=== PATIENT | male | born 1975 | race American Indian/Alaskan Native ===

== ENCOUNTER 2017-10-02 14:02 | Inpatient (IN) | payer MEDICARE, MEDICAID ==
[~2017-10-02] VITALS: Ht 188 cm; Wt 92.4 kg
[2017-10-02 14:35] LABS: BASOPHILS % (AUTO) 0.4 % (0-1); EOSINOPHILS # (AUTO) 0.2 X10'3 (0-0.9); EOSINOPHILS % (AUTO) 1.8 % (0-6); HEMATOCRIT 43.3 % (42.0-52.0); HEMOGLOBIN 14.8 g/dl (14.0-17.9); LYMPHOCYTES # (AUTO) 1.4 X10'3 (1.1-4.8); LYMPHOCYTES % (AUTO) 16.6 % (21-51); MEAN CORPUSCULAR HGB CONC 34.2 % (33.0-36.5); MEAN CORPUSCULAR VOLUME 84.8 FL (78-98); MEAN PLATELET VOLUME 8.6 FL (7.4-10.4); MONOCYTES # (AUTO) 0.6 X10'3 (0-0.9); MONOCYTES % (AUTO) 6.5 % (2-12); NEUTROPHILS # (AUTO) 6.5 X10'3 (1.8-7.7); NEUTROPHILS % (AUTO) 74.7 % (42-75); PLATELET COUNT 215 X10'3 (140-440); RED BLOOD COUNT 5.11 X10'6 (4.70-6.10); WHITE BLOOD COUNT 8.7 X10'3 (4.5-11.0)
[2017-10-02 14:43] LABS: CLARITY,URINE CLEAR (Clear); COLOR,URINE YELLOW (Yellow); GLUCOSE, URINE NEGATIVE (Neg); KETONES,URINE NEGATIVE (Neg); LEUKOCYTE ESTERASE ,URINE NEGATIVE (Neg); NITRITES, URINE NEGATIVE (Neg); OCCULT BLOOD,URINE MODERATE (Neg); PH,URINE 6.5 (4.8-8.0); PROTEIN,URINE NEGATIVE (Neg); UA COLLECTION TYPE CLN CATCH MIDSTREAM; UROBILINOGEN,URINE 0.2 E.U/dL (0.2-1.0)
[2017-10-02 14:44] LABS: PROTHROMBIN TIME 10.5 SECONDS (9.0-12.0)
[2017-10-02] MEDS ORDERED: ketorolac trometh. 30mg/ml inj. IV ONE (14:45)
[2017-10-02] MEDS ORDERED: normal saline 1000ML IV soln IVB ONE (14:45)
[2017-10-02 14:50] LABS: ALANINE AMINOTRANSFERASE 39 U/L (12-78); ALBUMIN 3.6 G/DL (3.4-5.0); ALBUMIN/GLOBULIN RATIO 0.9 (1.1-1.5); ALKALINE PHOSPHATASE 70 IU/L (46-116); ANION GAP 12 (8-16); ASPARTATE AMINO TRANSFERASE 15 U/L (10-37); BILIRUBIN,TOTAL 1.1 MG/DL (0.1-1.0); BLOOD UREA NITROGEN 12 MG/DL (7-18); BUN/CREATININE RATIO 5.9 (5.4-32.0); CHLORIDE 101 MMOL/L (99-107); CREATININE 2.02 MG/DL (0.60-1.10); GLUCOSE 134 MG/DL (70-104); POTASSIUM 3.7 MMOL/L (3.5-5.1); SODIUM 137 MMOL/L (135-145); TOTAL CARBON DIOXIDE 24.1 MMOL/L (24-32); TOTAL PROTEIN 7.4 G/DL (6.4-8.2); eGFR 36 ML/MIN
[2017-10-02 14:58] LABS: BACTERIA,URINE NONE SEEN /HPF (Neg); SQUAMOUS EPITHELIAL CELL,UR FEW /LPF (FEW); WBC,URINE 0-4 /HPF (0-4)
[2017-10-02] MEDS ORDERED: HYDR-3965 PO (15:57)
[2017-10-02] MEDS ORDERED: ONDA4TAB12 PO (15:57)
[2017-10-02] MEDS ORDERED: FLO0.4C PO (15:57)
[2017-10-02] MEDS ORDERED: morphine 4 MG/ML inj SYRINge IV PRN ×4 (17:45→21:55)
[2017-10-02] MEDS ORDERED: mag hydrox/Alum hydrox/simeth 30ml oral suspension PO PRN (17:45)
[2017-10-02] MEDS ORDERED: magnesium hydroxide 30ml (MOM) UD suspension PO PRN (17:45)
[2017-10-02] MEDS ORDERED: HYDROmorphone inj. 0.5 MG/0.5 ML DISP.SYRIN IV PRN ×2 (17:45)
[2017-10-02] MEDS ORDERED: acetaminophen 325mg tablet PO PRN (17:45)
[2017-10-02] MEDS ORDERED: bisacodyl 10mg suppository rectal RC PRN (17:45)
[2017-10-02] MEDS ORDERED: HYDROcodone/acetaminophen 5mg/325mg tablet PO PRN (17:45)
[2017-10-02] MEDS ORDERED: metoclopramide 5 mg/ml inj IV PRN (17:45)
[2017-10-02] MEDS ORDERED: levoFLOXACIN-Levaquin 500mg/D5 100 ML IV SCH (17:45)
[2017-10-02] MEDS ORDERED: acetaminophen 650mg rectal suppository RC PRN (17:45)
[2017-10-02] MEDS ORDERED: diphenhydrAMINE 25mg capsule PO PRN (17:45)
[2017-10-02] MEDS ORDERED: diphenhydrAMINE 50 mg/ml inj IV PRN (17:45)
[2017-10-02] MEDS ORDERED: ondansetron/PF 4mg/2ml inj IV PRN (17:45)
[2017-10-02 18:12] LABS: LIPASE 115 U/L (73-393); PHOSPHORUS 2.8 MG/DL (2.3-4.5)
[2017-10-02] MEDS: normal saline 1000ml 1,000 ML IV SCH (18:25)
[2017-10-02] MEDS: docusate sod 100mg capsule PO SCH (19:56)
[2017-10-02 21:00] VITALS: BP 115/69
[2017-10-02] MEDS ORDERED: temazepam 15mg capsule PO PRN (21:00)
[2017-10-02] MEDS: HYDROcodone/acetaminophen 10/325mg tab PO PRN (22:02)
[2017-10-02] MEDS ORDERED: morphine 2 MG/ML inj. syringe IV PRN ×2 (23:10)
[2017-10-03] VITALS (13 sets, daily range): BP systolic 106–134; BP diastolic 66–89
[2017-10-03] MEDS ORDERED: morphine 2 MG/ML inj. syringe IV PRN (01:30)
[2017-10-03] MEDS: morphine 2 MG/ML inj. syringe IV PRN ×3 (01:47→14:56)
[2017-10-03] MEDS: normal saline 1000ml 1,000 ML IV SCH ×2 (04:40→13:41)
[2017-10-03] MEDS: docusate sod 100mg capsule PO SCH (07:58)
[2017-10-03] MEDS ORDERED: levoFLOXACIN-Levaquin 250mg/D5 50 ML IV SCH (08:00)
[2017-10-03] MEDS ORDERED: sevoflurane 250ml liquid IH ONE (12:30)
[2017-10-03] MEDS ORDERED: ringers solution, lacted 1,000 ML IV SCH (12:54)
[2017-10-03] MEDS ORDERED: proCHLORperazine 10 MG/2 ml inj IV PRN (12:55)
[2017-10-03] MEDS ORDERED: ondansetron/PF 4mg/2ml inj IV PRN (12:55)
[2017-10-03] MEDS ORDERED: morphine 4 MG/ML inj SYRINge IV PRN ×2 (12:55)
[2017-10-03] MEDS ORDERED: meperidine/PF 25mg/ml syringe IV PRN ×3 (12:55)
[2017-10-03] MEDS ORDERED: fentaNYL/PF 50MCG/1 ML 2ML syringe ONE (12:58)
[2017-10-03] MEDS ORDERED: midazolam 2 mg/2 ml injection ONE (13:00)
[2017-10-03] MEDS ORDERED: LIDOcaine 2% (20mg/ml) 5ml vial ONE (13:22)
[2017-10-03] MEDS ORDERED: dexamethasone sod phosphate 4mg/ml inj. ONE (13:22)
[2017-10-03] MEDS ORDERED: propofol inj 20 ML IV ONE (13:22)
[2017-10-03] MEDS ORDERED: HYDR-3965 PO (18:10)
[2017-10-03] MEDS: HYDROcodone/acetaminophen 10/325mg tab PO PRN (19:32)
== END 2017-10-03 20:19 | disposition home or self-care (01) | DRG 683 ==
LOC: ER 14:02 → ED HOLD 17:41 → SUR 3N 21:00 → PACU 10-03 12:05 → SUR 3N 10-03 14:16
PROVIDERS: ADMIT Family Medicine; ATTEND Family Medicine
PROC: BT171ZZ Fluoroscopy of Left Ureter using Low Osmolar Contrast (ICD-10-PCS; 2017-10-03)
PROC: 0T778DZ Dilation of Left Ureter with Intraluminal Device, Via Natural or Artificial Opening Endoscopic (ICD-10-PCS; principal; 2017-10-03 12:37)
DX: N17.9 Acute kidney failure, unspecified (principal); N20.2 Calculus of kidney with calculus of ureter; E86.0 Dehydration; N12 Tubulo-interstitial nephritis, not specified as acute or chronic; F32.9 Major depressive disorder, single episode, unspecified; F41.9 Anxiety disorder, unspecified; Z91.041 Radiographic dye allergy status; Z79.899 Other long term (current) drug therapy
CPT/HCPCS: 36415; 74176; 80053; 81001; 83690; 83735; 83880; 84100; 85025; 85610; 87070; 96361; 96374; 99285; A4402; C1769; C2625; J1100; J1885; J1956; J2001; J2250; J2270; J2704; J3010; J7030; J7120

== ENCOUNTER 2017-10-29 21:07 | Emergency (ER) | payer MEDICARE, MEDICAID ==
[~2017-10-29] VITALS: Ht 188 cm; Wt 60.1 kg
[~2017-10-29 21:07] MED LIST: FLO0.4C PO; HYDR-3965 PO; ONDA4TAB12 PO
[2017-10-29] MEDS ORDERED: normal saline 1000ML IV soln IVB ONE (22:30)
[2017-10-29] MEDS ORDERED: ketorolac trometh. 30mg/ml inj. IV ONE (22:30)
[2017-10-29 22:51] LABS: BASOPHILS % (AUTO) 0.3 % (0-1); EOSINOPHILS # (AUTO) 0.4 X10'3 (0-0.9); EOSINOPHILS % (AUTO) 5.5 % (0-6); HEMATOCRIT 39.9 % (42.0-52.0); HEMOGLOBIN 13.5 g/dl (14.0-17.9); LYMPHOCYTES # (AUTO) 1.7 X10'3 (1.1-4.8); LYMPHOCYTES % (AUTO) 26.8 % (21-51); MEAN CORPUSCULAR HEMOGLOBIN 28.6 PG (27.0-31.0); MEAN CORPUSCULAR HGB CONC 33.9 % (33.0-36.5); MEAN CORPUSCULAR VOLUME 84.4 FL (78-98); MEAN PLATELET VOLUME 8.1 FL (7.4-10.4); MONOCYTES # (AUTO) 0.3 X10'3 (0-0.9); MONOCYTES % (AUTO) 4.7 % (2-12); NEUTROPHILS % (AUTO) 62.7 % (42-75); PLATELET COUNT 275 X10'3 (140-440); RED BLOOD COUNT 4.73 X10'6 (4.70-6.10); WHITE BLOOD COUNT 6.4 X10'3 (4.5-11.0)
[2017-10-29 22:59] LABS: GLUCOSE, URINE NEGATIVE (Neg); KETONES,URINE NEGATIVE (Neg); OCCULT BLOOD,URINE LARGE (Neg); PROTEIN,URINE >=300 mg/dl (Neg)
[2017-10-29 23:06] LABS: ALANINE AMINOTRANSFERASE 35 U/L (12-78); ALBUMIN 3.2 G/DL (3.4-5.0); ALBUMIN/GLOBULIN RATIO 0.9 (1.1-1.5); ALKALINE PHOSPHATASE 71 IU/L (46-116); ANION GAP 4 (8-16); ASPARTATE AMINO TRANSFERASE 10 U/L (10-37); BILIRUBIN,TOTAL 0.5 MG/DL (0.1-1.0); BLOOD UREA NITROGEN 6 MG/DL (7-18); BUN/CREATININE RATIO 5.2 (5.4-32.0); CALCIUM 8.9 MG/DL (8.5-10.1); CHLORIDE 104 MMOL/L (99-107); CREATININE 1.16 MG/DL (0.60-1.10); GLUCOSE 156 MG/DL (70-104); POTASSIUM 3.2 MMOL/L (3.5-5.1); SODIUM 139 MMOL/L (135-145); TOTAL CARBON DIOXIDE 30.6 MMOL/L (24-32); TOTAL PROTEIN 6.8 G/DL (6.4-8.2); eGFR 69 ML/MIN
[2017-10-29 23:15] LABS: LEUKOCYTE ESTERASE ,URINE SMALL (Neg); NITRITES, URINE NEGATIVE (Neg); UROBILINOGEN,URINE 0.2 E.U/dL (0.2-1.0)
[2017-10-29 23:21] LABS: CLARITY,URINE BLOODY (Clear); COLOR,URINE DARK YELLOW (Yellow); UA COLLECTION TYPE CLN CATCH MIDSTREAM
[2017-10-29 23:23] LABS: BACTERIA,URINE 1+ /HPF (Neg); RBC,URINE TNTC /HPF (0-2); SQUAMOUS EPITHELIAL CELL,UR NONE SEEN /LPF (FEW); WBC,URINE TNTC /HPF (0-4)
[2017-10-29] MEDS ORDERED: HYDROcodone/acetaminophen 10/325mg tab PO ONE (23:30)
[2017-10-29] MEDS ORDERED: cephalexin 250mg capsule PO ONE (23:30)
[2017-10-29] MEDS ORDERED: FLO0.4C PO (23:32)
[2017-10-29] MEDS ORDERED: CEPH-572 PO (23:32)
[2017-10-29] MEDS ORDERED: IBUP-1985 PO (23:32)
[2017-10-29] MEDS ORDERED: HYDR-565 PO (23:32)
[2017-10-29] MEDS ORDERED: CefTRIAXone/D5W-Rocephin 1gm 50 ML IV ONE (23:50)
[2017-10-29 23:57] VITALS: BP 100/52
== END 2017-10-30 00:50 | disposition home or self-care (01) ==
LOC: ER 21:07
DX: N39.0 Urinary tract infection, site not specified (principal); N20.0 Calculus of kidney; R31.9 Hematuria, unspecified; F41.9 Anxiety disorder, unspecified; F32.9 Major depressive disorder, single episode, unspecified; Z88.8 Allergy status to other drugs, medicaments and biological substances
CPT/HCPCS: 36415; 80053; 81001; 85025; 87088; 96365; 96375; 99284; J0696; J1885; J7030

== ENCOUNTER 2020-10-19 17:35 | Emergency (ER) | payer MEDICARE, MEDICAID ==
[~2020-10-19] VITALS: Ht 182.9 cm; Wt 180.0 kg
[~2020-10-19 17:35] MED LIST changes: -FLO0.4C PO; -HYDR-3965 PO; +IBUP-1985 PO; -ONDA4TAB12 PO
[2020-10-19 17:48] VITALS: BP 118/74
[2020-10-19] MEDS ORDERED: acetaminophen 325mg tablet PO ONE ×2 (17:55→18:35)
[2020-10-19 19:20] LABS: BASOPHILS % (AUTO) 0.2 % (0-1); EOSINOPHILS % (AUTO) 0.1 % (0-6); HEMATOCRIT 42.3 % (42.0-52.0); HEMOGLOBIN 13.9 g/dl (14.0-17.9); LYMPHOCYTES % (AUTO) 11.6 % (21-51); MEAN CORPUSCULAR HEMOGLOBIN 27.2 PG (27.0-31.0); MEAN CORPUSCULAR HGB CONC 32.9 g/dL (33.0-36.5); MEAN CORPUSCULAR VOLUME 82.6 FL (78-98); MEAN PLATELET VOLUME 8.3 FL (7.4-10.4); MONOCYTES # (AUTO) 0.5 X10'3 (0-0.9); NEUTROPHILS # (AUTO) 7.4 X10'3 (1.8-7.7); NEUTROPHILS % (AUTO) 82.1 % (42-75); PLATELET COUNT 182 X10'3 (140-440); RED BLOOD COUNT 5.13 X10'6 (4.70-6.10); RED CELL DISTRIBUTION WIDTH 16.5 % (11.5-14.5); WHITE BLOOD COUNT 9.1 X10'3 (4.5-11.0)
[2020-10-19 19:41] LABS: ALANINE AMINOTRANSFERASE 34 U/L (12-78); ALBUMIN 3.3 G/DL (3.4-5.0); ALBUMIN/GLOBULIN RATIO 0.8 (1.1-1.5); ALKALINE PHOSPHATASE 75 IU/L (46-116); ANION GAP 10 (8-16); ASPARTATE AMINO TRANSFERASE 22 U/L (10-37); BILIRUBIN,TOTAL 0.9 MG/DL (0.1-1.0); BLOOD UREA NITROGEN 8 MG/DL (7-18); BUN/CREATININE RATIO 4.9 (5.4-32.0); CALCIUM 8.1 MG/DL (8.5-10.1); CHLORIDE 100 MMOL/L (99-107); CREATININE 1.64 MG/DL (0.60-1.10); GLUCOSE 130 MG/DL (70-104); POTASSIUM 3.3 MMOL/L (3.5-5.1); SODIUM 135 MMOL/L (135-145); TOTAL CARBON DIOXIDE 25.1 MMOL/L (24-32); TOTAL PROTEIN 7.5 G/DL (6.4-8.2); eGFR 46 ML/MIN
== END 2020-10-19 19:57 | disposition home or self-care (01) ==
LOC: ER 17:35
DX: U07.1 COVID-19 (principal); R19.7 Diarrhea, unspecified; R51.9 Headache, unspecified; R05 Cough; R11.0 Nausea; F41.9 Anxiety disorder, unspecified; F32.9 Major depressive disorder, single episode, unspecified; F17.200 Nicotine dependence, unspecified, uncomplicated; Z87.442 Personal history of urinary calculi; Z79.899 Other long term (current) drug therapy
CPT/HCPCS: 36415; 71045; 80053; 85025; 87635; 99284; C9803

== ENCOUNTER 2022-02-27 05:17 | Emergency (ER) | payer MEDICARE, MEDICAID ==
[~2022-02-27] VITALS: Ht 188 cm; Wt 100.0 kg
[2022-02-27 05:20] VITALS: BP 144/93
== END 2022-02-27 13:04 | disposition left against medical advice (07) ==
LOC: ER 05:18
DX: M54.9 Dorsalgia, unspecified (principal); Z53.21 Procedure and treatment not carried out due to patient leaving prior to being seen by health care provider

== ENCOUNTER 2024-10-11 17:17 | Emergency (ER) | payer MEDICAID, MEDICARE ==
[~2024-10-11] VITALS: Ht 185.4 cm; Wt 105.0 kg
[2024-10-11 17:21] VITALS: TEMP 98.3
[2024-10-11 18:01] LABS: MEAN PLATELET VOLUME 10.3 FL (7.4-10.4); RED CELL DISTRIBUTION WIDTH 15.9 % (11.5-14.5)
--- NOTE | 2024-10-11 18:03 | RADIOLOGY REPORT ---
CHEST RADIOGRAPH Indication: SEPSIS Technique: Single frontal view of the chest was obtained Comparison: CHEST,SINGLE VIEW on DOS: 10/19/20 FINDINGS: Lines and Tubes: None Lungs: No focal consolidation. Right lower lung zone Linear densities. Pleura: No effusion. No pneumothorax. Cardiomediastinal contours: Unremarkable Bones: No acute osseous abnormality. IMPRESSION: Right lower lung zone linear atelectasis. Otherwise, no evidence for acute cardiopulmonary disease.
[2024-10-11] MEDS: morphine 4 MG/ML inj SYRINge IV ONE (18:11)
[2024-10-11] MEDS: ondansetron/PF 4mg/2ml inj IV ONE (18:11)
--- NOTE | 2024-10-11 18:17 | Physician Documentation ---
History of Present Illness Chief Complaint: Abdominal Pain w/vomiting Stated Complaint: PAIN Time Seen by MD: 18:09 OK to notify your PCP?: Yes Primary Medical Doctor: [facility] Source: patient Mode of Arrival: Ambulatory HPI This 49-year-old male presents to the ED with a complaint of sharp 10/10 pain the last 4-5 days. THe last three days, he has been vomiting . denies no fever or chills. Patient does report a difficulty defecating and a recent methamphetamine use. Patient also reports a history of kidney problems Day of Onset: Oct 11, 2024 Medication Reconciliation Allergies: Coded Allergies: No Known Allergies (Unverified , 10/11/24) Scheduled Ibuprofen (Ibuprofen), 1 TAB PO Q8H Past Medical History Past Medical History: Kidney Stones, Anxiety, Depression Past Surgical History: noncontributory Alcohol Use: None Drug Use: none Lives with: Spouse Lives In: Home Occupation: employed Review of Systems All Other Systems at this time: Reviewed and Negative ROS As stated above in the HPI, otherwise all systems are reviewed and negative. Physical Exam Vital Signs: RN Vital Signs have been reviewed: Yes, Temperature: 98.3, Source: Oral, Heart Rate: 119, Respiratory Rate: 28, BP: 90/38, Pulse Oximetry: 96, Weight: 105.000 Oxygen Flow Rate: 0 Progress Progress Note 1908: The case was discussed with the hardware assembler Dr. henriquez who was informed about the patients case and kindly agreed to see the patient. 1918: The patient walked out refusing any additional care, not even removing the IV from his arm or putting his shirt back on. The patient was asked by the provider to stay to be treated and informed that if he leaves he has a great chance of dying but he left regardless. Results/Orders Reviewed/noted all lab results: Yes Results/Orders Medications Received in ER Medications (Trade) Dose Ordered Sig/Sherwin Route PRN Reason Start Time Stop Time Status Last Admin Dose Admin (Zofran 4mg/2ml vial) 4 mg ONCE ONCE IV 10/11/24 18:05 10/11/24 18:07 DC 10/11/24 18:11 4 MG (morphine inj.) 4 mg ONCE ONCE IV 10/11/24 18:05 10/11/24 18:07 DC 10/11/24 18:11 4 MG Vital Signs 10/11/24 10/11/24 10/11/24 17:21 17:49 18:11 Temp 98.3 Pulse 119 Resp 18 28 B/P (MAP) 90/38 Pulse Ox 96 O2 Flow Rate 0 Laboratory Tests Test 10/11/24 17:40 White Blood Count 14.4 H Red Blood Count 5.29 Hemoglobin 14.6 Hematocrit 43.1 Mean Corpuscular Volume 81.4 Mean Corpuscular Hemoglobin 27.5 Mean Corpuscular Hemoglobin Concent 33.8 Red Cell Distribution Width 15.9 H Platelet Count Mean Platelet Volume 10.3 Neutrophils (%) (Auto) 91.2 H Lymphocytes (%) (Auto) 1.6 L Monocytes (%) (Auto) 1.4 L Eosinophils (%) (Auto) 5.7 Basophils (%) (Auto) 0.1 Neutrophils # (Auto) 13.1 H Lymphocytes # (Auto) 0.2 L Monocytes # (Auto) 0.2 Eosinophils # (Auto) 0.8 Basophils # (Auto) 0.0 CBC Comment Basophilic Stippling Chemistry Comments Re-Evaluation Re-Evaluation : Re-Evaluation: Improved Progress This patient is critically ill. He was signed out to me for admission. However during the workup the patient decided to go AMA in the middle of aggressive resuscitation. Patient was tachycardic hypotensive and his cat scan revealed obstructive uropathy with UTI and sepsis. Patient has a history of drug use. Patient's heart rate improved from 140s to the 100s. I made arrangements with Nephrology Dr. Henriquez [facility] to evaluate the patient for possible hemodialysis and kidney failure. Patient's laboratory work showed a lactic acid of 6.7. Troponin was elevated at 1620 consistent with a non ST-elevation RI. patient had significant infection with procalcitonin of 150 [place]. [place] [address] [place] CO2 of 18 with hyponatremia sodium of 128. Patient's D-dimer elev ated at greater than 35. Patient's CBC showed platelets of 17. Patient had a white count of 14.4 with a left shift of 91.2 neutrophils. Patient's heart rate was in the 170s he was hypotensive with blood pressure 78/56. Patient decided to go AMA. Patient was told that he will . He was told to go to another hospital if not return here. I did not have a chance to give the patient is antibiotics. Also considered cardioverting the patient however this appeared to be SVT rather than AFib. Patient was alert oriented perfusing enough blood to the brain to know the date who the president was. Patient refused to sign the AMA form. Patient looked much better than his initial presentation however he still looks quite ill when he left AMA. He was able to ambulate on his own accord. Cardiac continuous monitor showed SVT heart rate 170s, abnormal, my interpretation. Pulse oximetry monitor interpretation is low at 93% room air, abnormal, my interpretation. 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 Florentin Ramsey Measurements Intervals [place] Rate: 146 P: 0 WI: 0 QRS: 52 QRSD: 104 T: 52 QT: 308 QTc: 480 Interpretive Statements Atrial fibrillation Electronically Signed On 10-11-2024 20:05:[address] Florentin Ramsey Please click the below link to view image of tracing. EKG Date and Time:10/11/241843 Electronically Signed by: FLORENTIN RAMSEY MD Date and Time: 10/11/242004 Chest X-Ray : Additional Comments CHEST RADIOGRAPH Indication: SEPSIS Technique: Single frontal view of the chest was obtained Comparison: CHEST,SINGLE VIEW on DOS: 10/19/20 FINDINGS: Lines and Tubes: None Lungs: No focal consolidation. Right lower lung zone Linear densities. Pleura: No effusion. No pneumothorax. Cardiomediastinal contours: Unremarkable Bones: No acute osseous abnormality. IMPRESSION: Right lower lung zone linear atelectasis. Otherwise, no evidence for acute cardiopulmonary disease. Electronically Signed by:MARIANNE GUZMAN DO Date & Time: 10/11/[address] : Impression Exam: CT CT ABDOMEN PELVIS History: severe abdominal pain Comparison Study: None TECHNIQUE: Multidetector CT of the abdomen pelvis without IV contrast. Axial, coronal and sagittal multiplanar reformats were obtained from the axial data set by the technologist. Radiation Dose Information: CT Dose: CTDI volume is 31.31 mGy. Dose-length product is 1793.09 mGy*cm FINDINGS: Bibasilar atelectasis. Partially visualized heart is unremarkable. Mild hepatomegaly with hepatic steatosis., liver, spleen, gallbladder, pancreas unremarkable. Mild gaseous and adrenal adjacent to the bilateral adrenal glands which is most likely from the perinephric fat stranding. Otherwise, the adrenal glands unremarkable. Mild left with jdks-es-cmybrdii right-sided perinephric fat stranding. M hmo-hj-eqatlgjm right-sided Seibert nephrosis with a 0.9 x 0.7 cm obstructing calculus of the right ureteropelvic junction/ proximal ureter. Additional punctate nonobstructing right renal calculi are noted. Punctate nonobstructing left renal calculus is noted. Limited evaluation of the urinary bladder due to decompressed state. Prostate is unremarkable. 6 mm hyperdensity layering within the gastric fundus with associated Minimal Streak artifact. Otherwise, the stomach is unremarkable Small bowel loops mid jejunum is fluid-filled and borderline distended up to 3 cm. The remainder of the small bowel loops unremarkable. Appendix is unremarkable. Fat stranding adjacent to the ascending colon which is most likely from the perirenal fat stranding. The large bowel is otherwise unremarkable. No evidence of intraperitoneal free air or free fluid. No evidence of aortic aneurysm. Mild atherosclerotic calcification of the aorta. Small fat containing umbilical hernia. Small fat containing bilateral inguinal hernias. Posterior spinal fusion with post laminectomy changes L3 to S1. IMPRESSION: Opxo-eg-xcpjhnkh right hydro nephrosis with a obstructing 0.9 x 0.7 cm calculus of the right ureteral pelvic junction/ right proximal ureter. Calf equd-fh-xvxvaoej right-sided perinephric fat stranding which is most likely from the obstructing Seibert nephrosis. Additional punctate bilateral renal calculi are noted. The mid jejunum is fluid-filled and borderline distended up to 3 cm which may be due to ileus with early bowel obstruction not excluded. 6 mm hyperdensity with streak artifact within the stomach. Correlate for possible foreign body. Additional findings as above. Electronically Signed by:MARIANNE GUZMAN DO Date & Time: 10/11/24 1851 Medical Decision Making Additional info obtained from: old records Findings Dr. Ramsey [facility] at 1900. Differential Dx:Considerations: Include: AAA, Angina/RI, Aortic dissection, Appendicitis, Bowel obstruction, Cholangitis, Cholelithasis, Constipation, Dive rticular disease, Esophageal rupture, Esophagitis, Gastritis/PUD, Gastroenteritis, GI hemorrhage, Hernia, Hepatitis, Inflammatory BD, Ischemic bowel, Pancreatitis, Porphyria, Testicular torsion, Trauma, intraabdominal, Urinary obstruction, Urinary tract infection, Urolithiasis, Other Heart Score: Heart Score Response (Comments) Value History Moderate Suspicious 1 EKG Repolarization Disturb 1 Age 45-64 1 Risk Factors 1 or 2 risk factors 1 Troponin >3 x's Normal limit 2 Total 6 Departure Time of Disposition: 19:27 Disposition: 07 LEFT AGAINST MEDICAL ADVICE Impression: Primary Impression: Small bowel obstruction Additional Impressions: Dehydration Renal failure Qualified Codes: N17.9 - Acute kidney failure, unspecified NSTEMI (non-ST elevated myocardial infarction) Cardiogenic shock Atrial fibrillation with RVR Thrombocytopenia Chronic pain Methamphetamine abuse Condition: Fair Referrals: NO PRIMARY CARE PROVIDER (PCP) Education Educated: Patient Educated regarding: diagnosis, treatment, prognosis, need for follow up Critical Care Note Total Time (mins): 95 Critical Care Note The very real possibility of a deterioration of this patient's condition required the highest level of my preparedness for sudden, emergent intervention. I provided critical care services, which included medication orders, frequent reevaluations of the patient's condition and response to treatment, ordering and reviewing test results, and discussing the case with various consultants. Excludes time spent performing separately billable procedures. The critical care time associated with the care of the patient was. 95 minutes Signature Scribe Signature: y Scribed for Florentin Ramsey MD by Raquel Dunlap . 10/11/24 19:10 (Progress only) Attestation: Scribed for Florentin Ramsey MD by Liza Llanes NP . 10/11/24 19:02 LIZA SOLIZ NP Oct 11, 2024 18:17 RAQUEL WHITLEY Oct 11, 2024 19:11 FLORENTIN RAMSEY MD Oct 13, 2024 23:42
[2024-10-11 18:22] LABS: LYMPHOCYTES % (MANUAL) 3.0 % (21-51); METAMYLEOCYTES% (MANUAL) 1.0 % (0-0); MONOCYTES % (MANUAL) 5.0 % (2-12); NEUTROPHILS % (MANUAL) 91.0 % (42-75)
[2024-10-11 18:23] LABS: PLATELET ESTIMATE DECREASED
[2024-10-11 18:30] VITALS: O2SAT 93
[2024-10-11 18:34] LABS: CREATININE 8.99 MG/DL (0.60-1.10); TOTAL CARBON DIOXIDE 18.8 MMOL/L (24-32); eCRCL 11 ML/MIN; eGFR 6 ML/MIN
[2024-10-11 18:38] VITALS: RESP 20
[2024-10-11] MEDS: normal saline 1000ML IV soln IVB ONE (18:43)
--- NOTE | 2024-10-11 18:47 | ELECTROCARDIOGRAPH REPORT ---
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 Hardik Ramsey Measurements Intervals [place] Rate: 146 P: 0 UT: 0 QRS: 52 QRSD: 104 T: 52 QT: 308 QTc: 480 Interpretive Statements Atrial fibrillation Electronically Signed On 10-11-2024 20:05:[address] Hardik Ramsey Please click the below link to view image of tracing.
[2024-10-11] MEDS ORDERED: amiodarone 50MG/ML inj IV ONE (18:50)
--- NOTE | 2024-10-11 18:53 | RADIOLOGY REPORT ---
Exam: CT CT ABDOMEN PELVIS History: severe abdominal pain Comparison Study: None TECHNIQUE: Multidetector CT of the abdomen pelvis without IV contrast. Axial, coronal and sagittal mu ltiplanar reformats were obtained from the axial data set by the technologist. Radiation Dose Information: CT Dose: CTDI volume is 31.31 mGy. Dose-length product is 1793.09 mGy*cm FINDINGS: Bibasilar atelectasis. Partially visualized heart is unremarkable. Mild hepatomegaly with hepatic steatosis., liver, spleen, gallbladder, pancreas unremarkable. Mild g aseous and adrenal adjacent to the bilateral adrenal glands which is most likely from the perinephric fat stranding. Otherwise, the adrenal glands unremarkable. Mild left with kiuw-pj-cdzanvjw right-sided perinephric fat stranding. Aohz-je-xxeijiwm right-sided H ydro nephrosis with a 0.9 x 0.7 cm obstructing calculus of the right ureteropelvic junction/ proximal ureter. Additional punctate nonobstructing right renal calculi are noted. Punctate nonobstructing le ft renal calculus is noted. Limited evaluation of the urinary bladder due to decompressed state. Pro state is unremarkable. 6 mm hyperdensity layering within the gastric fundus with associated Minimal Streak artifact. Otherw ise, the stomach is unremarkable Small bowel loops mid jejunum is fluid-filled and borderline distend ed up to 3 cm. The remainder of the small bowel loops unremarkable. Appendix is unremarkable. Fat st randing adjacent to the ascending colon which is most likely from the perirenal fat stranding. The la rge bowel is otherwise unremarkable. No evidence of intraperitoneal free air or free fluid. No evidence of aortic aneurysm. Mild atherosclerotic calcification of the aorta. Small fat containing umbilical hernia. Small fat containing bilateral inguinal hernias. Posterior spi nal fusion with post laminectomy changes L3 to S1. IMPRESSION: Wcbn-ai-rrtvrjaq right hydro nephrosis with a obstructing 0.9 x 0.7 cm calculus of the right ureteral pelvic junction/ right proximal ureter. Calf dcjp-yi-ageckdau right-sided perinephric fat stranding which is most likely from the obstructing [place] nephrosis. Additional punctate bilateral renal calculi are noted. The mid jejunum is fluid-filled and borderline distended up to 3 cm which may be due to ileus with ea rly bowel obstruction not excluded. 6 mm hyperdensity with streak artifact within the stomach. Correlate for possible foreign body. Additional findings as above.
[2024-10-11 18:59] LABS: APTT 33 SECONDS (22-32); INR 1.2 INR
[2024-10-11 19:07] VITALS: BP 87/59; PULSE 134
[2024-10-11] MEDS: diltiazem 5mg/ml 5ml inj. IV ONE (19:07)
[2024-10-11] MEDS ORDERED: amiodarone 150mg/dext, iso-os 100 ML IV ONE (19:10)
[2024-10-11 19:20] LABS: PRO BRAIN NATRIURETIC PEPTIDE 22355 PG/ML (0-125)
[2024-10-11] MEDS ORDERED: MESSAGE TO NURSING IV ONE (19:20)
== END 2024-10-12 03:03 | disposition left against medical advice (07) ==
LOC: ER 17:19
DX: K56.609 Unspecified intestinal obstruction, unspecified as to partial versus complete obstruction (principal); R06.02 Shortness of breath; E86.0 Dehydration; D69.6 Thrombocytopenia, unspecified; I48.20 Chronic atrial fibrillation, unspecified; N17.9 Acute kidney failure, unspecified; F15.90 Other stimulant use, unspecified, uncomplicated; R57.0 Cardiogenic shock
CPT/HCPCS: 36415; 71045; 74176; 80053; 83605; 83690; 83735; 83880; 84145; 84484; 85025; 85379; 85610; 85730; 87040; 87077; 87186; 93005; 96361; 96374; 96375; 99285; J2270; J2405; J3490; J7030; 85007